=== PATIENT | female | born 1970 | race Caucasian/White ===

== ENCOUNTER → 2018-05-27 14:25 | Outpatient (CLI) | payer OTHER, SELFPAY | DX: Z23 Encounter for immunization (principal) | CPT/HCPCS: 90471; 90686 ==

== ENCOUNTER → 2018-06-17 10:02 | Outpatient (CLI) | payer OTHER, SELFPAY ==
[2018-06-17 10:48] LABS: Add Manual Diff / Slide Review NO; Basophils Percent Auto 0.6 % (0-2); Eosinophils Percent Auto 0.8 % (2-4); Hemoglobin 13.3 g/dL (12.0-16.0); Lymphocytes Percent Auto 29.6 % (25-40); Mean Corpuscular HGB Conc 33.2 % (30-36); Mean Corpuscular Volume 84.4 fL (80-100); Monocytes Percent Auto 9.9 % (3-14); Neutrophils Absolute Auto 3900 /uL (3000-5900); Neutrophils Percent Auto 59.1 % (50-75); Platelet Count 374 X10^3/uL (150-400); Red Blood Cell Count 4.75 X10^6/uL (4.0-5.2); Red Cell Distribution Width 13.4 % (11.6-14.8); White Blood Cell Count 6.7 X10^3/uL (4.5-11.0)
[2018-06-17 10:55] LABS: Erythrocyte Sedimentation Rate 5 MM/HR (0-20)
[2018-06-17 11:46] LABS: Thyroid Stimulating Hormone 1.16 uIU/mL (0.47-4.68)
[2018-06-17 16:53] LABS: BUN Creatinine Ratio 15.7 (6-22); Blood Urea Nitrogen 11 mg/dL (7-17); Calcium 9.4 mg/dL (8.4-10.2); Carbon Dioxide 30 mmol/L (22-32); Chloride 102 mmol/L (98-107); Estimated Glomerular Filt Rate > 60.0 mL/min (>60); Glucose 87 mg/dL (70-100); HEMOLYSIS < 15 (0-50); Potassium 3.8 mmol/L (3.4-5.1); Sodium 144 mmol/L (137-145)
[2018-06-17 16:54] LABS: C-Reactive Protein Quant < 0.5 mg/dL (<1.0)
[2018-06-17 16:57] LABS: Rheumatoid Factor < 8.6 IU/mL (<12.0)
[2018-06-20 01:29] LABS: ANA Pattern Speckled; ANA Screen, IFA Positive (Negative); ANA Titer 1:40 titer (<1:40)
== END ==
PROVIDERS: PCP Internal Medicine; Visit Provider Internal Medicine
DX: M25.50 Pain in unspecified joint (principal); R53.83 Other fatigue; Z82.61 Family history of arthritis
CPT/HCPCS: 36415; 80048; 84443; 85025; 85651; 86038; 86140; 86430

== ENCOUNTER → 2018-12-24 09:50 | Outpatient (CLI) | payer OTHER, SELFPAY ==
--- NOTE | 2018-12-24 | DI.MG.S_ITS ---
BILATERAL DIGITAL SCREENING MAMMOGRAM 3D/2D WITH CAD: 12/24/2018 CLINICAL: Routine screening. Family history of breast cancer. Comparison is made to exams dated: 11/18/2017 mammogram, 10/01/2016 mammogram, and 09/22/2015 mammogram - [facility]. There are scattered fibroglandular elements in both breasts. Current study was also evaluated with a Computer Aided Detection (CAD) system. There is an irregular low density asymmetry with an indistinct and circumscribed margin in the right breast at 9 o'clock posterior depth. No other significant masses, calcifications, or other findings are seen in either breast. IMPRESSION: INCOMPLETE: NEEDS ADDITIONAL IMAGING EVALUATION The irregular low density asymmetry in the right breast is indeterminate. Mediolateral and spot compression views as well as additional views with possible ultrasound are recommended. This exam was interpreted at Station ID: [id number]. NOTE: For mammograms, a report in lay terms will be sent to the patient. Approximately 15% of breast malignancies will not be visualized mammographically. In the management of a palpable breast mass, a negative mammogram must not discourage biopsy of a clinically suspicious lesion. Electronically Signed By: Jett chavez/mckinley:12/24/2018 15:47:42 letter sent: Additional Imaging Needed ACR BI-RADS Category 0: Incomplete 3340F
== END ==
PROVIDERS: Family Provider Internal Medicine; PCP Internal Medicine; Visit Provider Internal Medicine
DX: Z12.31 Encounter for screening mammogram for malignant neoplasm of breast (principal); Z80.3 Family history of malignant neoplasm of breast
CPT/HCPCS: 77063; 77067

== ENCOUNTER → 2019-01-08 13:24 | Outpatient (CLI) | payer OTHER, SELFPAY ==
--- NOTE | 2019-01-08 | DI.US.S_ITS ---
LIMITED ULTRASOUND OF RIGHT BREAST: 01/08/2019 CLINICAL: Patient returns today to evaluate a focal asymmetry in the right breast. Comparison is made to exams dated: 01/08/2019 mammogram, 12/24/2018 mammogram, 11/18/2017 mammogram, 10/01/2016 mammogram, 09/22/2015 mammogram - [facility], and 09/23/2014 mammogram - [facility]. Real-time and Doppler ultrasound of the right breast 7-11 o'clock region were performed. Alcantar scale images of the real-time examination were reviewed. There is a 1.1 x 0.9 x 0.2 cm oval circumscribed anechoic cyst with increased through transmission/posterior acoustic enhancement, and no vascularity on Doppler ultrasound located in the right breast at 9:30 position 3 cm from the nipple. This appears to correlate with the finding seen on mammography. IMPRESSION: BENIGN 1. 1.1 cm benign simple cyst in the right breast at 9:30 position 3 cm from the nipple, which appears to correlate with the finding seen on mammography. 2. There is no sonographic evidence of malignancy in the imaged areas of the right breast. Return to annual mammogram screening schedule is recommended. The patient is advised to monitor her breasts and to return sooner for re-evaluation should she feel anything grow or change. This exam was interpreted at Station ID: [id number]. Electronically Signed By: Roberto Kelly M.D. ecl/:01/08/2019 14:34:53 letter sent: Normal Exam Ultrasound BI-RADS: 2 Benign
--- NOTE | 2019-01-08 | DI.MG.S_ITS ---
UNILATERAL RIGHT DIGITAL DIAGNOSTIC MAMMOGRAM 3D/2D WITH ADDITIONAL VIEWS: 01/08/2019 CLINICAL: Additional evaluation requested from prior study. Comparison is made to exams dated: 10/01/2016 mammogram, 12/24/2018 mammogram, and 11/18/2017 mammogram - [facility]. There are scattered fibroglandular elements in right breast. Previously identified irregular low density asymmetry with an indistinct margin in the lateral right breast (described as being near 9 o'clock position posterior depth on comparison screening mammograms of 12/24/2018) persists with additional views. It measures approximately 1.1 cm in greatest diameter. IMPRESSION: INCOMPLETE: NEEDS ADDITIONAL IMAGING EVALUATION Previously identified irregular low density asymmetry with an indistinct margin in the lateral right breast (described as being at 9 o'clock position posterior depth on comparison screening mammograms of 12/24/2018) persists with additional views. A targeted ultrasound is recommended for further evaluation, and will be performed immediately following this exam. This exam was interpreted at Station ID: [id number]. NOTE: For mammograms, a report in lay terms will be sent to the patient. Approximately 15% of breast malignancies will not be visualized mammographically. In the management of a palpable breast mass, a negative mammogram must not discourage biopsy of a clinically suspicious lesion. Electronically Signed By: Roberto Kelly M.D. ecl/:01/08/2019 14:35:46 ACR BI-RADS Category 0: Incomplete [id number]
== END ==
PROVIDERS: Family Provider Internal Medicine; PCP Internal Medicine; Visit Provider Internal Medicine
DX: R92.8 Other abnormal and inconclusive findings on diagnostic imaging of breast (principal); N60.01 Solitary cyst of right breast
CPT/HCPCS: 76642; 77065; G0279

== ENCOUNTER → 2019-06-02 14:00 | Outpatient (CLI) | payer OTHER, SELFPAY | PROVIDERS: Family Provider Internal Medicine; PCP Internal Medicine | DX: Z23 Encounter for immunization (principal) | CPT/HCPCS: 90471; 90686 ==

== ENCOUNTER → 2020-01-20 09:33 | Outpatient (CLI) | payer OTHER, SELFPAY ==
--- NOTE | 2020-01-20 | DI.US.S_ITS ---
PROCEDURE: US PELVIC COMPLETE INDICATIONS: RIGHT LOWER QUADRANT PAIN TECHNIQUE: Real-time scanning was performed of the pelvic organs, with image documentation. Additional endovaginal scanning was necessary due to incomplete visualization of the adnexal and endometrial structures by transabdominal scanning. COMPARISON: None. FINDINGS: Transabdominal scanning: Limited scanning through the kidneys shows no hydronephrosis. No pathologic free abdominal or pelvic fluid. Endovaginal scanning: Uterus: Uterus is normal in size at 4.6 x 5.5 x 9.2 cm. The endometrium measures 11.5 mm in combined thickness and at the endometrial margin of the upper border of the endometrial canal there is a heterogeneous irregularly marginated masslike structure measuring up to 1.5 x 1.5 x 1.8 cm. Additionally, 2 small fibroids are present within the myometrium located on the left, anteriorly in the intramural space measuring up to 1.3 cm and posteriorly in the subserosal space measuring up to 1.4 cm. Several cervical nabothian cysts are incidentally noted Ovaries: The ovaries bilaterally appear normal measuring up to 1.9 cm on the right and 2.3 cm on the left. IMPRESSION: A small masslike structure is present at the upper margin of the endometrial canal measuring up to 1.8 cm in maximal dimension, and potentially evidence of early endometrial carcinoma. Gynecological consultation is recommended. 2 small uterine fibroids. No evidence of ovarian pathology. Dictated by: Dequan Chandra M.D. on 01/20/2020 at 11:56 Approved by: Dequan Chandra M.D. on 01/20/2020 at 12:00
== END ==
PROVIDERS: Family Provider Internal Medicine; PCP Internal Medicine; Referring Provider Internal Medicine; Visit Provider Internal Medicine
DX: R10.31 Right lower quadrant pain (principal); D25.1 Intramural leiomyoma of uterus; N85.9 Noninflammatory disorder of uterus, unspecified
CPT/HCPCS: 76830; 76856

== ENCOUNTER → 2020-02-03 09:09 | Outpatient (CLI) | payer OTHER, SELFPAY ==
--- NOTE | 2020-02-03 | DI.MG.S_ITS ---
BILATERAL DIGITAL SCREENING MAMMOGRAM 3D/2D WITH CAD: 02/03/2020 CLINICAL: Routine screening. Family history of breast cancer. Comparison is made to exams dated: 12/24/2018 mammogram, 11/18/2017 mammogram, and 10/01/2016 mammogram - [facility]. There are scattered fibroglandular elements in both breasts. Current study was also evaluated with a Computer Aided Detection (CAD) system. No significant masses, calcifications, or other findings are seen in either breast. There has been no significant interval change. IMPRESSION: NEGATIVE There is no mammographic evidence of malignancy. A 1 year screening mammogram is recommended. This exam was interpreted at Station ID: [id number]. NOTE: For mammograms, a report in lay terms will be sent to the patient. Approximately 15% of breast malignancies will not be visualized mammographically. In the management of a palpable breast mass, a negative mammogram must not discourage biopsy of a clinically suspicious lesion. Electronically Signed By: Lee Ann goel/mckinley:02/03/2020 09:37:42 letter sent: Normal Exam ACR BI-RADS Category 1: Negative [id number]
== END ==
PROVIDERS: Family Provider Internal Medicine; PCP Internal Medicine; Referring Provider Internal Medicine; Visit Provider Internal Medicine
DX: Z12.31 Encounter for screening mammogram for malignant neoplasm of breast (principal); Z80.3 Family history of malignant neoplasm of breast
CPT/HCPCS: 77063; 77067

== ENCOUNTER → 2020-02-29 15:47 | Outpatient (CLI) | payer OTHER, SELFPAY ==
[2020-03-02 06:37] LABS: COVID19 Sendout Not Detected (Not Detect)
== END ==
PROVIDERS: Family Provider Internal Medicine; PCP Internal Medicine; Visit Provider Physician Assistant
DX: Z01.812 Encounter for preprocedural laboratory examination (principal)
CPT/HCPCS: 87635

== ENCOUNTER 2020-03-03 08:28 | Day surgery (SDC) | payer OTHER, SELFPAY ==
[2020-02-29 07:23] VITALS: BMI 24.6
[2020-03-03] VITALS (7 sets, daily range): BP systolic 134–145; BP diastolic 85–90; PULSE 66–86; RESP 10–16; TEMP 36.3–37.1; O2SAT 96–99; BMI 23.8
[2020-03-03] MEDS: LACTATED RINGERS 1,000 ML 100 ML IV (08:53)
--- NOTE | 2020-03-03 08:57 | PM.PREOP ---
Pre-operative Note COVID-19 COVID-19 status: Negative Result date/Date tested (Pos, Neg/Pending): 02/29/20 Interval Note History & Physical reviewed/Exam performed by Physician: Yes Changes to H&P: No
--- NOTE | 2020-03-03 09:29 | SUR.OPER ---
Lithotomy on padded OR bed, head on pillow, arms secured on padded arm boards at <90 degrees abduction. Legs secured in padded yellow fins stirrups.
--- NOTE | 2020-03-03 10:12 | P.OP_ITS ---
Operative Date/Time/Diagnoses Date of procedure: 03/03/20 Time of procedure: 10:12 Pre-op diagnosis: Abnormal ultrasound finding of mass of the uterus unclear if malignancy Post-op diagnosis: same Procedure & Clinicians Procedure: Hysteroscopy with removal of endometrial polyp and endometrial biopsies Same procedure as scheduled: Yes Indications: Ultrasound that showed a mass at the upper end of the cervix unclear if malignancy Surgeon: Miriam Tate Yes if Unassisted: Yes Anesthesia Type: General Operative Notes Findings: Endometrial polyp at the right tubal ostia area. No other int rauterine or cervical abnormalities Closure Type: not applicable Specimen(s): other (Endometrial biopsies and curettage) Estimated Blood Loss (mL): 5 Blood products transfused: none Procedure in detail: The patient was brought to the operating room where she underwent general anesthesia. She was placed in low stirrups She was prepped and draped in usual sterile fashion with pulsatile stockings in place and functional, warming in place, no antibiotics were indicated. Her bladder was drained with in and out catheter. A single-tooth tenaculum was placed on the anterior lip of the cervix and the uterus dilated to #8 Hegar dilator. The hysteroscope was placed into the uterus with a sorbitol solution running and under constant suction. The resecting loop set at 80 W of cutting was used to resect the polyp and random biopsies of the lower uterine segment/upper cervical canal. A endometrial curettage was performed. The polyp, biopsies and the endometrial curettage was sent to pathology. The patient went to recovery room in good condition counts of instruments and sponges were correct. The sorbitol solution I=O approximately 1500 mL. Complications: none Post-operative Condition: stable Disposition: same day surgery Plan for aftercare: Treatment and follow-up based on biopsy results
--- NOTE | 2020-03-03 10:28 | SUR.PHASEII ---
Doctor Foist at bedside explaining procedure. Patient denies pain and nausea, Refusing po at this time.
== END 2020-03-03 10:55 | disposition home or self-care (01) ==
PROVIDERS: Family Provider Internal Medicine; PCP Internal Medicine; Referring Provider Specialist; Visit Provider Specialist
PROC: 0UDB8ZZ Extraction of Endometrium, Via Natural or Artificial Opening Endoscopic (ICD-10-PCS; CPT 58558; principal; 2020-03-03 09:45)
DX: N84.0 Polyp of corpus uteri (principal); N94.89 Other specified conditions associated with female genital organs and menstrual cycle
CPT/HCPCS: 58558; J1100; J1885; J2250; J2405; J2704; J3010

== ENCOUNTER → 2020-08-09 11:50 | Outpatient (CLI) | payer OTHER, SELFPAY ==
[2020-08-09 13:28] LABS: COVID19 -Nasal RAPID Negative (Negative)
== END ==
PROVIDERS: Family Provider Internal Medicine; PCP Internal Medicine; Visit Provider Physician Assistant
DX: Z11.59 Encounter for screening for other viral diseases (principal)
CPT/HCPCS: 87635

== ENCOUNTER → 2020-09-01 08:19 | Outpatient (CLI) | payer OTHER, SELFPAY ==
[2020-09-01] MEDS: COVID-19 VACC(MODERNA-1)/PF 100 MCG/0.5 ML VIAL IM (08:24)
== END ==
PROVIDERS: Family Provider Internal Medicine; PCP Internal Medicine; Visit Provider Internal Medicine
DX: Z23 Encounter for immunization (principal)
CPT/HCPCS: 0011A; 91301

== ENCOUNTER → 2020-09-21 08:54 | Outpatient (CLI) | payer OTHER, SELFPAY ==
--- NOTE | 2020-09-21 | DI.CT.S_ITS ---
PROCEDURE: CT ABDOMEN PELVIS W CON INDICATIONS: RIGHT LOWER QUADRANT PAIN x1 month TECHNIQUE: After the administration of intravenous contrast, 5 mm thick sections acquired from the diaphragm to the symphysis. 5 mm coronal and sagittal reformats were acquired. For radiation dose reduction, the following was used: automated exposure control, adjustment of mA and/or kV according to patient size. COMPARISON: None. FINDINGS: Image quality: Excellent. ABDOMEN: Lung bases: Lung bases are clear. 6 millimeter calcified granuloma in the right lung base. Heart size is normal. Solid organs: Liver is normal in size and enhancement. Mild, diffuse fatty infiltration of the liver. Gallbladder is normal. Biliary system is non dilated. Pancreas enhances normally. Spleen is normal in size and enhancement. No adrenal nodules. Kidneys demonstrate normal size and enhancement, without hydronephrosis. Peritoneum and bowel: Bowel loops demonstrate normal wall thickness and caliber. No free fluid or air. The appendix is normal. Nodes and vessels: No retroperitoneal or mesenteric adenopathy by size criteria. Aorta and inferior vena cava are normal in size. Miscellaneous: Small fat containing umbilical hernia. PELVIS: Genitourinary: Bladder wall thickness is normal. Uterine fibroids are noted with partially calcified uterine fibroid in the uterine fundus. Miscellaneous: No inguinal hernias or adenopathy. Bones: No suspicious bony lesions. No vertebral body compression fractures. IMPRESSION: 1. No acute disease process. 2. Appendix is normal. 3. No free fluid or free air. 4. No dilated loops of bowel. 5. Hepatic steatosis. Dictated by: Angélica Miller MD, PhD on 09/21/2020 at 10:00 Approved by: Angélica Miller MD, PhD on 09/21/2020 at 10:07
== END ==
PROVIDERS: Family Provider Internal Medicine; PCP Internal Medicine; Referring Provider Internal Medicine; Visit Provider Internal Medicine
DX: R10.31 Right lower quadrant pain (principal); K76.0 Fatty (change of) liver, not elsewhere classified; D25.9 Leiomyoma of uterus, unspecified; K42.9 Umbilical hernia without obstruction or gangrene
CPT/HCPCS: 74177; Q9967

== ENCOUNTER 2020-11-09 07:38 | Observation (INO) | payer OTHER, SELFPAY ==
[2020-11-09] VITALS (10 sets, daily range): BP systolic 114–163; BP diastolic 69–96; PULSE 63–86; RESP 10–22; TEMP 36.9–37.3; O2SAT 95–100; BMI 24.1
--- NOTE | 2020-11-09 07:40 | DI.RAD.S_ITS ---
PROCEDURE: XR CHEST 1V INDICATIONS: chset pain TECHNIQUE: One view of the chest was acquired. COMPARISON: [facility], , CHEST 2 VIEW, 04/16/2017, 15:45. FINDINGS: Surgical changes and devices: None. Lungs and pleura: Lungs are clear. No pleural effusions or pneumothorax. Mediastinum: Mediastinal contours appear normal. Heart size is normal. Bones and chest wall: No suspicious bony lesions. Overlying soft tissues appear unremarkable. IMPRESSION: No acute cardiopulmonary pathology. Dictated by: Terrance Florez M.D. on 11/09/2020 at 8:51 Approved by: Terrance Florez M.D. on 11/09/2020 at 8:56
--- NOTE | 2020-11-09 07:48 | ED.CHESTPAIN ---
HPI - Chest Pain General Chief Complaint: Chest Pain Stated Complaint: chest pressure today Time Seen by Provider: 11/09/20 07:40 Source: patient Mode of arrival: Ambulatory Limitations: no limitations History of Present Illness HPI narrative: 50-year-old female nonsmoker without any significant medical history presents with a chief complaint of a left-sided sharp and stabbing chest pain that she noticed upon waking at 1:30 a.m. this morning. She states at its most intense it was an 8/10 and is currently a 4/10. She denies any obvious provocation, palliation or radiation. She states it is intermittent and when present last approximately 1 minute and then goes away. She denies associated symptoms such as dizziness, weakness, lightheadedness, fatigue, shortness of breath or any positional change. She denies any recent exertional fatigue, pain, lightheadedness. She states she went to bed feeling in her normal state of health and noticed this upon waking. She denies any injury, overuse, recent travel, history of blood clots or cancer. MD complaint: chest pain Onset (ago): hour(s) Duration: intermittent Onset: during rest Pain location: left chest Severity: moderate Severity scale (1-10): 8 Quality: sharp Pain radiation: none Relieving factors: nothing Exacerbating factors: nothing Treatments prior to arrival chest pain: none Related Data On Oral Contraceptives: No Home Medications Medication Instructions Recorded Confirmed clonidine HCl 0.1 mg tablet 0.2 mg PO BEDTIME 02/01/20 11/09/20 Allergies Allergy/AdvReac Type Severity Reaction Status Date / Time No Known Drug Allergies Allergy Verified 11/09/20 07:52 Review of Systems Constitutional Constitutional: Denies chills, Denies fatigue, Denies fever(s), Denies frequent falls, Denies lethargy and Denies weakness Eyes Eyes: Denies change in vision, Denies eye discharge, Denies irritation and Denies loss of vision ENT Ears, Nose, Mouth, and Throat: Denies change in voice, Denies dizziness, Denies neck pain, Denies sore throat and Denies throat swelling Cardiovascular Cardiovascular: Reports chest pain, Denies irregular heart rhythm, Denies lightheadedness, Denies palpitations, Denies dyspnea, Denies dyspnea on exertion and Denies orthopnea Respiratory Respiratory: Denies cough, Denies dyspnea, Denies dyspnea on exertion and Denies wheezing Gastrointestinal Gastrointestinal: Denies abdominal pain, Denies change in bowel habits, Denies diarrhea, Denies nausea and Denies vomiting Musculoskeletal Musculoskeletal: Denies neck pain and Denies numbness Integumentary/Breasts Skin/Breast: Denies pruritus, Denies erythema, Denies rash and Denies wounds Neurologic Neurologic: Denies behavioral changes, Denies confusion, Denies dizziness, Denies frequent falls, Denies loss of vision, Denies numbness and Denies weakness Psychiatric Psychiatric: Denies anxiety, Denies behavioral changes, Denies confusion, Denies depression, Denies homicidal ideation and Denies suicidal ideation Endocrine Endocrine: Denies fatigue, Denies flushing and Denies palpitations Hematologic/Lymphatic Hematologic/Lymphatic: Denies easy bruising Allergic/Immunologic Allergic/Immunologic: Denies urticaria, Denies throat swelling and Denies wheezing Patient History Social History household members: spouse Smoking Status: Never smoker alcohol intake: never Smoking Status: Never smoker Substance Use Type: does not use Exam Narrative Exam Narrative: GENERAL: [50] year old patient appears stated age. Well-nourished, well-developed patient, in mild distress. HEAD: Atraumatic. Normocephalic. EYES: Pupils equal round and reactive. Extraocular motions intact. No scleral icterus. No injection or drainage. ENT: Nose without bleeding, purulent drainage. Throat without erythema, tonsillar hypertrophy or exudate. Airway patent. NECK: Trachea midline. Non tender CARDIOVASCULAR: Regular rate and rhythm without murmurs, gallops, or rubs. RESPIRATORY: Clear to auscultation. Breath sounds equal bilaterally. No wheezes, rales, or rhonchi. GASTROINTESTINAL: Abdomen soft, non-tender, nondistended. EXTREMITIES: No edema or joint tenderness. BACK: Nontender without deformity or crepitance. No flank tenderness. NEURO: AOx3. SKIN: No rash or erythema of visible areas Initial Vital Signs Initial Vital Signs: Vital Signs Temperature 98.7 F 11/09/20 07:39 Pulse Rate 78 11/09/20 07:39 Respiratory Rate 16 11/09/20 07:39 Blood Pressure 163/89 H 11/09/20 07:39 Pulse Oximetry 100 11/09/20 07:39 Scores HEART Score Heart Score history: Moderately Suspicious Heart Score EKG: Normal Heart Score Age: 45-64 years old Heart Score risk factors: No known risk factors Heart Score troponin: < or = to normal limit Heart Score Total: 2 Course Course Course Narrative: after initial patient interview she mentions that she has a sharp and stabbing pain that is intermittent, but also has a basal pressure, heaviness that is persistent. It is this type of discomfort that went away after the nitro Orders Ordered: ED Orders 11/09/20 07:40 XR chest 1V Stat 11/09/20 07:42 Complete Blood Count AUTO DIFF Stat Comprehensive Metabolic Panel Stat D Dimer Stat Lipase Stat Prothrombin Time INR Stat Troponin & CK Cardiac Panel Stat 11/09/20 07:46 EKG-12 Lead Stat 11/09/20 08:33 EKG-12 Lead Stat 11/09/20 08:45 COVID19 Stat Aspirin (Aspirin Ec 81 Mg Tablet) 81 mg PO DAILY VENKAT Calcium Carbonate (Calcium Carbonate 500 Mg Tab) 1,000 mg PO Q4HR PRN PRN Reason: Dyspepsia Clonidine HCl (Clonidine 0.1 Mg Tablet) 0.1 mg PO BEDTIME VENKAT Morphine Sulfate (Morphine 2 Mg/Ml Inj) 2 mg IV Q5MIN PRN PRN Reason: Chest Pain Naloxone HCl (Naloxone 0.4 Mg/Ml Vial) 0.2 mg IV Q2MIN PRN PRN Reason: Opiate Reversal Nitroglycerin (Nitroglycerin 0.4 Mg Sl Tab) 0.4 mg SL [id number] PRN PRN Reason: Chest Pain Discontinued Medications Aspirin (Aspirin 81 Mg Chew Tab) 324 mg PO NOW ONE Stop: 11/09/20 07:41 Last Admin: 11/09/20 07:49 Dose: 324 mg Documented by: ATTILA Sodium Chloride (Normal Saline 0.9%) 1,000 mls @ 150 mls/hr IV CONT VENKAT Last Admin: 11/09/20 07:49 Dose: 150 mls/hr Documented by: ATTILA Nitroglycerin (Nitroglycerin 0.4 Mg Sl Tab) 0.4 mg SL [id number] PRN PRN Reason: Chest Pain Last Admin: 11/09/20 08:24 Dose: 0.4 mg Documented by: ATTILA Reevaluation(s) Reevaluation #1: pressure-like pain goes from 4/10 to 0/10 after 1st nitro. Time: 08:36 Vital Signs Vital signs: Vital Signs - 8 hr 11/09/20 07:39 11/09/20 07:45 11/09/20 08:00 Temperature 98.7 F Pulse Rate 78 80 63 Respiratory Rate 16 22 16 Blood Pressure 163/89 H 163/89 H 140/73 Pulse Oximetry 100 99 99 11/09/20 08:24 11/09/20 08:30 11/09/20 09:00 Temperature Pulse Rate 72 66 Respiratory Rate 10 L 16 Blood Pressure 140/73 114/69 141/82 H Pulse Oximetry 98 100 MDM - Chest Pain Lab Data Result diagrams: 11/09/20 07:42 11/09/20 07:42 Labs: Lab Results 11/09/20 11/09/20 11/09/20 Range/Units 07:42 07:42 07:42 WBC 7.8 (4.5-11.0) X10^3/uL RBC 4.41 (4.0-5.2) X10^6/uL Hgb 12.4 (12.0-16.0) g/dL Hct 37.5 (36-46) % MCV 84.9 (80-100) fL MCH 28.1 (26-34) PG MCHC 33.0 (30-36) % RDW 13.8 (11.6-14.8) % Plt Count 333 (150-400) X10^3/uL Neut % (Auto) 55.5 (50-75) % Lymph % (Auto) 31.0 (25-40) % Haralson % (Auto) 11.9 (3-14) % Eos % (Auto) 1.0 L (2-4) % Baso % (Auto) 0.6 (0-2) % Neut # (Auto) 4300 (1568-1972) /uL Lymph # (Auto) 2400 (3506-6990) /uL Haralson # (Auto) 900 (0-900) /uL Eos # (Auto) 100 (0-450) /uL Baso # (Auto) 0 (0-100) /uL PT 10.8 (10.1-12.7) SECONDS INR 1.0 (0.9-1.3) D-Dimer 266 H (<230) ng/mL Sodium 137 (137-145) mmol/L Potassium 3.7 (3.4-5.1) mmol/L Chloride 102 (98-107) mmol/L Carbon Dioxide 29 (22-32) mmol/L BUN 9 (7-17) mg/dL Creatinine 0.59 (0.52-1.04) mg/dL Estimated GFR > 60.0 (>60) mL/min BUN/Creatinine Ratio 15.3 (6-22) Glucose 101 H (70-100) mg/dL Calcium 9.3 (8.4-10.2) mg/dL Total Bilirubin 0.3 (0.2-1.3) mg/dL AST 21 (14-36) IU/L ALT 13 (<35) IU/L Alkaline Phosphatase 75 (38-126) U/L Total Creatine Kinase 67 (30-135) U/L CK-MB (CK-2) TNP CK-MB (CK-2) Rel Index TNP Troponin I < 0.012 (0.01-0.034) ng/mL Total Protein 7.9 (6.3-8.2) g/dL Albumin 4.5 (3.5-5.0) g/dL Globulin 3.4 (1.7-4.1) g/dL Albumin/Globulin Ratio 1.3 (1.0-2.8) Lipase 67 (23-300) U/L SARS-CoV-2 (PCR) (Negative) 11/09/20 Range/Units 08:45 WBC (4.5-11.0) X10^3/uL RBC (4.0-5.2) X10^6/uL Hgb (12.0-16.0) g/dL Hct (36-46) % MCV (80-100) fL MCH (26-34) PG MCHC (30-36) % RDW (11.6-14.8) % Plt Count (150-400) X10^3/uL Neut % (Auto) (50-75) % Lymph % (Auto) (25-40) % Haralson % (Auto) (3-14) % Eos % (Auto) (2-4) % Baso % (Auto) (0-2) % Neut # (Auto) (6578-6637) /uL Lymph # (Auto) (9056-0421) /uL Haralson # (Auto) (0-900) /uL Eos # (Auto) (0-450) /uL Baso # (Auto) (0-100) /uL PT (10.1-12.7) SECONDS INR (0.9-1.3) D-Dimer (<230) ng/mL Sodium (137-145) mmol/L Potassium (3.4-5.1) mmol/L Chloride (98-107) mmol/L Carbon Dioxide (22-32) mmol/L BUN (7-17) mg/dL Creatinine (0.52-1.04) mg/dL Estimated GFR (>60) mL/min BUN/Creatinine Ratio (6-22) Glucose (70-100) mg/dL Calcium (8.4-10.2) mg/dL Total Bilirubin (0.2-1.3) mg/dL AST (14-36) IU/L ALT (<35) IU/L Alkaline Phosphatase (38-126) U/L Total Creatine Kinase (30-135) U/L CK-MB (CK-2) CK-MB (CK-2) Rel Index Troponin I (0.01-0.034) ng/mL Total Protein (6.3-8.2) g/dL Albumin (3.5-5.0) g/dL Globulin (1.7-4.1) g/dL Albumin/Globulin Ratio (1.0-2.8) Lipase (23-300) U/L SARS-CoV-2 (PCR) Negative (Negative) ECG Data Attestation: I personally reviewed and interpreted this ECG as follows: Interpretation: EKG is normal sinus rhythm rate [67 ] and free of any signs of ischemia or ectopy. No ST segmental elevation or depression. No T wave inversions Discharge Plan Departure Patient Disposition: Admitted as Observation Clinical Impression: Chest pain Qualifiers: Chest pain type: unspecified Qualified Code(s): R07.9 - Chest pain, unspecified Admit Date/Time: 11/09/20 09:12 Admit Provider: iNr Dodge
[2020-11-09] MEDS: ASPIRIN 81 MG CHEW TAB 324 MG PO (07:49)
[2020-11-09] MEDS: SODIUM CHLORIDE 0.9% 1,000 ML 150 ML IV (07:49)
[2020-11-09 07:54] LABS: Add Manual Diff / Slide Review NO; Basophils Absolute Auto 0 /uL (0-100); Basophils Percent Auto 0.6 % (0-2); Eosinophils Absolute Auto 100 /uL (0-450); Hematocrit 37.5 % (36-46); Hemoglobin 12.4 g/dL (12.0-16.0); Lymphocytes Absolute Auto 2400 /uL (1100-4500); Mean Corpuscular Hemoglobin 28.1 PG (26-34); Mean Corpuscular Volume 84.9 fL (80-100); Monocytes Absolute Auto 900 /uL (0-900); Monocytes Percent Auto 11.9 % (3-14); Neutrophils Absolute Auto 4300 /uL (1500-7000); Neutrophils Percent Auto 55.5 % (50-75); Platelet Count 333 X10^3/uL (150-400); Red Blood Cell Count 4.41 X10^6/uL (4.0-5.2); Red Cell Distribution Width 13.8 % (11.6-14.8); White Blood Cell Count 7.8 X10^3/uL (4.5-11.0)
[2020-11-09 08:01] LABS: Prothrombin Time 10.8 SECONDS (10.1-12.7)
[2020-11-09 08:04] LABS: D Dimer 266 ng/mL (<230)
[2020-11-09 08:07] LABS: Alanine Aminotransferase 13 IU/L (<35); Albumin 4.5 g/dL (3.5-5.0); Albumin Globulin Ratio 1.3 (1.0-2.8); Alkaline Phosphatase 75 U/L (38-126); Aspartate Aminotransferase 21 IU/L (14-36); BUN Creatinine Ratio 15.3 (6-22); Bilirubin Total 0.3 mg/dL (0.2-1.3); Blood Urea Nitrogen 9 mg/dL (7-17); Calcium 9.3 mg/dL (8.4-10.2); Carbon Dioxide 29 mmol/L (22-32); Chloride 102 mmol/L (98-107); Creatine Kinase 67 U/L (30-135); Estimated Glomerular Filt Rate > 60.0 mL/min (>60); Globulin 3.4 g/dL (1.7-4.1); Glucose 101 mg/dL (70-100); HEMOLYSIS 17 (0-50); Lipase 67 U/L (23-300); Potassium 3.7 mmol/L (3.4-5.1); Sodium 137 mmol/L (137-145); Total Protein 7.9 g/dL (6.3-8.2)
[2020-11-09 08:17] LABS: Troponin I < 0.012 ng/mL (0.01-0.034)
[2020-11-09] MEDS: NITROGLYCERIN 0.4 MG SL TAB SL (08:24)
--- NOTE | 2020-11-09 08:33 | PC.NURSE ---
Chest pressure relieved with one nitro, 0/10. BP dropped from 140 SBP to 114 SBP. Pt reports a funny feeling in her head, not a headache.
[2020-11-09 09:03] LABS: COVID19 -Nasal RAPID Negative (Negative)
[2020-11-09 11:52] LABS: Troponin I < 0.012 ng/mL (0.01-0.034)
--- NOTE | 2020-11-09 12:50 | PC.NURSE ---
admit note: Pt to room 212 from ER. Able to ambulate to bed without assist. Oriented x 3. Denies pain, nausea, shortness of breath, headache, or chest pain. Oriented to room, call light, bed controls, and tv controls. Tele placed as ordered. Tele SR. Pt NPO for Stress test at 1240. Denies needs at this time but agrees to call for assistance as needed. Pt to Nuc Med for stress test at 1240
--- NOTE | 2020-11-09 13:55 | PM.HP.1 ---
History of Present Illness History of Present Illness Date Patient Seen: 11/09/20 Time Patient Seen: 13:55 Date of Onset of Symptoms: 11/09/20 Chief complaint: chest pressure today Narrative: Patient is a 50-year-old female with no previous cardiac history presents with acute onset of chest pain. She woke up at 2 this morning and was getting ready for work and started have an left-sided sharp intermittent chest pain with no radiation. No nausea no vomiting no diarrhea. No diaphoresis. Was not sure what it was associated with. She had no GI symptoms otherwise. No heartburn. Has she got ready for work and then went to work she noticed she was have an more consistent substernal pressure on the left side. No radiation. It was persistent and she was brought to the emergency room for evaluation. Patient was having chest pain which responded to 1 nitro and resolved. Has not recurred. She also had negative EKGs x2 and negatives troponins. Risk factors are negative family history, negative smoking, no significant lipid issues. Past medical history: Endometrial mass history of, menorrhagia, hot flashes Past surgical history: Vaginal deliveries x2. History of breast reduction bilaterally Allergies none Family history: Father hyperlipidemia, hypertension, prostate cancer Mother: Breast cancer, diabetes, hypertension, hyperlipidemia Two sisters both healthy Social history: , 2 children, works at [employer], nonsmoker Patient History Family & Social History Social History: household members spouse Prior Living Arrangements House Safety & Behavioral: Feels Safe in Current Yes Environment Been Physically Hurt or No Threatened By a Person Suicidal Ideation Description None Suicide Plan Description No Plan Tobacco & Substance use: Smoking Status Never smoker alcohol intake never alcohol intake frequency holiday/special occasion Substance Use Type does not use Meds Home Medications and Allergies Home Medications Medication Instructions Recorded Confirmed Type clonidine HCl 0.1 mg tablet 0.2 mg PO BEDTIME 02/01/20 11/09/20 History Allergies Allergy/AdvReac Type Severity Reaction Status Date / Time No Known Drug Allergies Allergy Verified 11/09/20 07:52 Review of Systems Review of Systems ROS: Yes All systems reviewed with the patient and are negative except as otherwise documented Exam Vital Signs (past 8 hours): - 11/09/20 07:39 11/09/20 07:45 11/09/20 08:00 Temperature 98.7 F Pulse Rate 78 80 63 Respiratory Rate 16 22 16 Blood Pressure 163/89 H 163/89 H 140/73 Pulse Oximetry 100 99 99 11/09/20 08:24 11/09/20 08:30 11/09/20 09:00 Temperature Pulse Rate 72 66 Respiratory Rate 10 L 16 Blood Pressure 140/73 114/69 141/82 H Pulse Oximetry 98 100 11/09/20 09:30 Temperature Pulse Rate 71 Respiratory Rate 19 Blood Pressure 136/80 Pulse Oximetry 98 Oxygen Delivery Method Room Air Narrative Exam Narrative: Alert smiling female sitting in bed in no acute distress. HEENT exam is unremarkable. Neck supple without adenopathy JVD or bruits. Lungs are clear. Heart regular rate and rhythm without murmurs clicks rubs or gallops. Abdomen is soft positive bowel sounds nontender. Extremities without cyanosis clubbing edema. Neurologic exam is nonfocal. Psychologically mildly stress but otherwise normal Objective Labs Result Diagrams: 11/09/20 07:42 11/09/20 07:42 Labs: Laboratory Results - last 24 hr 11/09/20 11/09/20 11/09/20 07:42 07:42 07:42 WBC 7.8 RBC 4.41 Hgb 12.4 Hct 37.5 MCV 84.9 MCH 28.1 MCHC 33.0 RDW 13.8 Plt Count 333 Neut % (Auto) 55.5 Lymph % (Auto) 31.0 [place] % (Auto) 11.9 Eos % (Auto) 1.0 L Baso % (Auto) 0.6 Neut # (Auto) 4300 Lymph # (Auto) 2400 [place] # (Auto) 900 Eos # (Auto) 100 Baso # (Auto) 0 PT 10.8 INR 1.0 D-Dimer 266 H Sodium 137 Potassium 3.7 Chloride 102 Carbon Dioxide 29 BUN 9 Creatinine 0.59 Estimated GFR > 60.0 BUN/Creatinine Ratio 15.3 Glucose 101 H Calcium 9.3 Total Bilirubin 0.3 AST 21 ALT 13 Alkaline Phosphatase 75 Total Creatine Kinase 67 CK-MB (CK-2) TNP CK-MB (CK-2) Rel Index TNP Troponin I < 0.012 Total Protein 7.9 Albumin 4.5 Globulin 3.4 Albumin/Globulin Ratio 1.3 Lipase 67 SARS-CoV-2 (PCR) 11/09/20 11/09/20 08:45 11:20 WBC RBC Hgb Hct MCV MCH MCHC RDW Plt Count Neut % (Auto) Lymph % (Auto) [place] % (Auto) Eos % (Auto) Baso % (Auto) Neut # (Auto) Lymph # (Auto) [place] # (Auto) Eos # (Auto) Baso # (Auto) PT INR D-Dimer Sodium Potassium Chloride Carbon Dioxide BUN Creatinine Estimated GFR BUN/Creatinine Ratio Glucose Calcium Total Bilirubin AST ALT Alkaline Phosphatase Total Creatine Kinase CK-MB (CK-2) CK-MB (CK-2) Rel Index Troponin I < 0.012 Total Protein Albumin Globulin Albumin/Globulin Ratio Lipase SARS-CoV-2 (PCR) Negative Assessment & Plan Assessment & Plan narrative: Chest pain. Concerning for response to nitro. Certainly description is concerning for possible ischemic disease. Otherwise workup is negative. Will admit for office labs follow-up and treadmill. If treadmill is negative she can go home. Patient understands questions answered. 35 minutes spent with patient and care coordination Quality VTE Deep Vein Thrombosis/Pulmonary Embolism Present on Admission: No
--- NOTE | 2020-11-09 18:20 | PC.NURSE ---
Evening Shift/Discharge Note- Patient discharged home per Dr. Wisdom. Discharge instructions and education reviewed with patient and signed. IV line removed and bandage applied. Tele monitor removed. Patient dressed self and packed up personal items. Patient left with all personal belongings on foot to private car at 1815
[2020-11-09 18:47] LABS: Troponin I < 0.012 ng/mL (0.01-0.034)
--- NOTE | 2020-11-09 19:42 | DI.NM.S_ITS ---
DATE OF SERVICE: 11/09/2020 PROCEDURE: Exercise perfusion study. INDICATION: Chest pain with family history of high blood pressure. RADIOPHARMACEUTICAL: 24.0 millicurie technetium-99m Myoview IV was injected at rest. CARDIAC STRESS: This is an exercise stress test study only. The patient walked on Sam protocol for 7 minutes and 13 seconds, achieved 111 percent of target heart rate and normal blood pressure response. No chest discomfort. The patient felt fatigued. She achieved 10 METs of workload, functional aerobic impairment positive 10 percent. Baseline EKG revealed sinus rhythm. During stress, there was 0.5-[address] depression in inferolateral leads. The patient has enhanced chronotropic response. No other significant arrhythmias other than sinus tachycardia. RAW DATA: There is adequate myocardial uptake. GATED STUDY: Stress LV ejection fraction 91 percent. Stress and end-diastolic volume 69 mL. Lung/heart ratio 0.30, which is within normal limits. MYOCARDIAL PERFUSION: Stress supine and stress prone images revealed normal myocardial perfusion. CONCLUSION: This is a normal myocardial perfusion study. Diminished exercise tolerance. Normal hemodynamic blood pressure response. Enhanced chronotropic response. Preserved left ventricular function. As far as perfusion scan is concerned, this is a low-risk myocardial perfusion scan. Jia Lindquist - Fortino/danny doc#: [id number]/job#: [id number] dd: 11/09/2020 17:37:00 dt: 11/09/2020 19:33:00 DICTATING /COPIES TO: Theodora Rodriguez MD COPIES MNE: OJSELINE;
== END 2020-11-09 18:15 | disposition home or self-care (01) ==
LOC: ED 09:04 → AC 09:13
PROVIDERS: Admitting Provider Family Medicine; Emergency Provider Emergency Medicine; Family Provider Internal Medicine; PCP Internal Medicine; Referring Provider Emergency Medicine; Visit Provider Family Medicine
DX: R07.9 Chest pain, unspecified (principal); Z20.822 Contact with and (suspected) exposure to COVID-19
CPT/HCPCS: 36415; 71045; 78451; 80053; 82550; 83690; 84484; 85025; 85379; 85610; 87635; 93005; 93017; 99284; C9803; G0378; A9502

== ENCOUNTER → 2021-02-08 11:10 | Outpatient (CLI) | payer OTHER, SELFPAY ==
[2020-11-09 10:03] VITALS: BMI 24.1
--- NOTE | 2021-02-08 11:11 | DI.MG.S_ITS ---
BILATERAL DIGITAL SCREENING MAMMOGRAM 3D/2D WITH CAD: 02/08/2021 CLINICAL: Routine screening. Family history of breast cancer. Comparison is made to exams dated: 02/03/2020 mammogram, 01/08/2019 mammogram, 12/24/2018 mammogram, and 11/18/2017 mammogram - [facility]. There are scattered fibroglandular elements in both breasts. Current study was also evaluated with a Computer Aided Detection (CAD) system. There are benign calcifications in both breasts. No significant masses, calcifications, or other findings are seen in either breast. There has been no significant interval change. IMPRESSION: BENIGN There is no mammographic evidence of malignancy. A 1 year screening mammogram is recommended. This exam was interpreted at Station ID: [id number]. NOTE: For mammograms, a report in lay terms will be sent to the patient. Approximately 15% of breast malignancies will not be visualized mammographically. In the management of a palpable breast mass, a negative mammogram must not discourage biopsy of a clinically suspicious lesion. Electronically Signed By: Jett chavez/mckinley:02/08/2021 11:56:44 letter sent: Normal Exam ACR BI-RADS Category 2: Benign Finding(s) [id number]
== END ==
PROVIDERS: Family Provider Internal Medicine; PCP Internal Medicine; Referring Provider Internal Medicine; Visit Provider Internal Medicine
DX: Z12.31 Encounter for screening mammogram for malignant neoplasm of breast (principal); Z80.3 Family history of malignant neoplasm of breast
CPT/HCPCS: 77063; 77067

== ENCOUNTER → 2021-07-20 06:34 | Outpatient (CLI) | payer OTHER, SELFPAY ==
[2020-11-09 10:03] VITALS: BMI 24.1
== END ==
PROVIDERS: Family Provider Internal Medicine; PCP Internal Medicine; Referring Provider Internal Medicine; Visit Provider Internal Medicine
DX: Z23 Encounter for immunization (principal)
CPT/HCPCS: 90471; 90686